=== PATIENT | female | born 1980 | race Caucasian/White ===

== ENCOUNTER 2017-10-29 10:02 | Inpatient (IN) | payer MEDICAID, OTHER ==
[~2017-10-29] VITALS: Ht 167.6 cm; Wt 46.0 kg
[~2017-10-29 10:02] MED LIST: ALPR-475; ESCI10TA10; LAMO25TA13 PO; LEVO40CA PO; LISI-167
[2017-10-29] MEDS ORDERED: KETOROLAC 30 MG/1 ML IVPush ONE (10:30)
[2017-10-29] MEDS ORDERED: ONDANSETRON 2MG/ML, 2ML IVPush ONE (10:30)
[2017-10-29] MEDS ORDERED: SODIUM CHLORIDE 0.9% 1,000ML IV ONE (10:30)
[2017-10-29] MEDS ORDERED: HYDROmorphone 1 MG/ML, 1ML IV ONE ×2 (10:30→12:00)
[2017-10-29] MEDS ORDERED: SODIUM CHLORIDE FLUSH 10ML SYR IVF ONE (10:30)
[2017-10-29] MEDS ORDERED: KETOROLAC 30 MG/1 ML ONE (10:44)
[2017-10-29] MEDS ORDERED: HYDROmorphone 2 MG/ML, 1ML ONE ×2 (10:44→12:12)
[2017-10-29] MEDS ORDERED: ONDANSETRON 2MG/ML, 2ML ONE (10:44)
[2017-10-29 10:46] LABS: BASOPHILS # (AUTO) 0.03 x10^3/uL (0-0.1); BASOPHILS % (AUTO) 0 % (0-1); EOSINOPHILS # (AUTO) 0.01 x10^3/uL (0-0.4); EOSINOPHILS % (AUTO) 0 % (1-7); LYMPHOCYTES # (AUTO) 1.37 x10^3/uL (1-3.4); LYMPHOCYTES % (AUTO) 15 % (22-44); MD NO; MEAN CORPUSCULAR HGB CONC 32.4 g/dL (32.4-35.8); MEAN CORPUSCULAR VOLUME 74.2 fL (80-100); MEAN PLATELET VOLUME 7.1 fL (7.4-10.4); MONOCYTES # (AUTO) 0.63 x10^3/uL (0.2-0.8); MONOCYTES % (AUTO) 7 % (2-9); NEUTROPHILS # (AUTO) 7.33 x10^3/uL (1.8-6.8); NEUTROPHILS % (AUTO) 78 % (42-75); PLATELET COUNT 237 x10^3/uL (130-400); RED BLOOD COUNT 4.02 x10^6/uL (3.82-5.3); RED CELL DISTRIBUTION WIDTH 18.7 % (9.6-15.2)
[2017-10-29 11:00] LABS: ALBUMIN 3.2 g/dL (3.4-5.0); ANION GAP 11 mmol/L (5-15); CALCIUM 8.2 mg/dL (8.5-10.1); CHLORIDE 96 mmol/L (98-107)
[2017-10-29 11:08] LABS: ALANINE AMINOTRANSFERASE 34 U/L (12-78); ALKALINE PHOSPHATASE 288 U/L (45-117); BILIRUBIN,TOTAL 0.8 mg/dL (0.2-1.0); CREATININE 0.63 mg/dL (0.55-1.02); TOTAL PROTEIN 7.5 g/dL (6.4-8.2)
[2017-10-29 11:31] LABS: MICROSCOPIC INDICATED
[2017-10-29 11:59] LABS: CULTURE INDICATED? YES
[2017-10-29] MEDS ORDERED: OMNIPAQUE 350 MG/ML, 100ML BOTTLE ONE (12:36)
[2017-10-29] MEDS ORDERED: METRONIDAZOLE PMX 500MG/100ML 100 ML IV ONE (13:30)
[2017-10-29] MEDS ORDERED: AMPICILLIN/SULBACTAM 3 GM in SODIUM CHLORIDE 0.9% 100 ML IV ONE (13:30)
[2017-10-29] MEDS ORDERED: ACETAMINOPHEN 325 MG TABLET PO PRN (17:00)
[2017-10-29] MEDS: morphine SULFATE 10 MG/ML, 1ML IVPush PRN ×2 (17:19→21:31)
[2017-10-29] MEDS: ONDANSETRON 2MG/ML, 2ML IVPush PRN ×2 (17:28→23:33)
[2017-10-29] MEDS: METRONIDAZOLE PMX 500MG/100ML 100 ML IV SCH (18:13)
[2017-10-29 18:17] VITALS: BP 100/68
[2017-10-29 19:29] VITALS: BP 105/72
[2017-10-29] MEDS: OXYcodone IR 5MG TABLET PO PRN (20:33)
[2017-10-29] MEDS: CIPROFLOXACIN/PMX 400MG/200ML 200 ML IV SCH (20:33)
[2017-10-29] MEDS: NS + 20MEQ KCL 1,000 ML IV SCH (23:33)
[2017-10-30] MEDS: OXYcodone IR 5MG TABLET PO PRN ×6 (00:37→20:47)
[2017-10-30 01:24] VITALS: BP 98/66
[2017-10-30] MEDS: METRONIDAZOLE PMX 500MG/100ML 100 ML IV SCH ×2 (01:46→10:08)
[2017-10-30] MEDS: morphine SULFATE 10 MG/ML, 1ML IVPush PRN ×6 (01:46→23:21)
[2017-10-30 05:13] LABS: ALBUMIN 2.6 g/dL (3.4-5.0); ANION GAP 10 mmol/L (5-15); CALCIUM 7.4 mg/dL (8.5-10.1); CHLORIDE 103 mmol/L (98-107)
[2017-10-30 05:14] LABS: BASOPHILS # (AUTO) 0.03 x10^3/uL (0-0.1); BASOPHILS % (AUTO) 0 % (0-1); EOSINOPHILS % (AUTO) 1 % (1-7); LYMPHOCYTES # (AUTO) 2.04 x10^3/uL (1-3.4); LYMPHOCYTES % (AUTO) 23 % (22-44); MD NO; MEAN CORPUSCULAR HEMOGLOBIN 23.8 pg (27.0-34.8); MEAN CORPUSCULAR HGB CONC 31.5 g/dL (32.4-35.8); MEAN CORPUSCULAR VOLUME 75.7 fL (80-100); MEAN PLATELET VOLUME 7.3 fL (7.4-10.4); MONOCYTES % (AUTO) 6 % (2-9); NEUTROPHILS # (AUTO) 6.26 x10^3/uL (1.8-6.8); NEUTROPHILS % (AUTO) 70 % (42-75); PLATELET COUNT 200 x10^3/uL (130-400); RED BLOOD COUNT 3.48 x10^6/uL (3.82-5.3); RED CELL DISTRIBUTION WIDTH 19.2 % (9.6-15.2)
[2017-10-30 05:17] LABS: ALANINE AMINOTRANSFERASE 19 U/L (12-78); ALKALINE PHOSPHATASE 224 U/L (45-117); BILIRUBIN,TOTAL 0.6 mg/dL (0.2-1.0); CHOL/HDL RATIO 2.7; CHOLESTEROL, TOTAL 69 mg/dL (140-239); HDL CHOL % 38 % (28-40); HDL CHOLESTEROL (DIRECT) 26 mg/dL (40-60); LDL CHOLESTEROL,CALCULATED 19 mg/dL (54-169); LDL/HDL RATIO 0.7 (0.5-3.0); TOTAL PROTEIN 6.3 g/dL (6.4-8.2); TRIGLYCERIDES 122 mg/dL (50-200); VLDL CHOLESTEROL 24 mg/dL (0-25)
[2017-10-30] MEDS: ONDANSETRON 2MG/ML, 2ML IVPush PRN ×3 (05:57→18:25)
[2017-10-30] MEDS: CIPROFLOXACIN/PMX 400MG/200ML 200 ML IV SCH (08:00)
[2017-10-30] MEDS: NS + 20MEQ KCL 1,000 ML IV SCH ×3 (08:00→21:49)
[2017-10-30 08:31] VITALS: BP 110/76
[2017-10-30 14:30] VITALS: BP 114/81
[2017-10-30 18:50] VITALS: BP 116/79
[2017-10-30] MEDS: TRAZODONE 100MG TABLET PO PRN (20:47)
[2017-10-31] MEDS: ONDANSETRON 2MG/ML, 2ML IVPush PRN ×3 (01:07→14:52)
[2017-10-31] MEDS: OXYcodone IR 5MG TABLET PO PRN ×4 (01:07→20:33)
[2017-10-31 03:11] VITALS: BP 110/76
[2017-10-31] MEDS: morphine SULFATE 10 MG/ML, 1ML IVPush PRN ×5 (03:44→22:18)
[2017-10-31 05:41] LABS: ANION GAP 16 mmol/L (5-15); CALCIUM 7.8 mg/dL (8.5-10.1); CHLORIDE 104 mmol/L (98-107)
[2017-10-31 05:42] LABS: CREATININE 0.52 mg/dL (0.55-1.02)
[2017-10-31 08:00] VITALS: BP 100/64
[2017-10-31] MEDS ORDERED: MAGNESIUM SULFATE PMX 4GM/100M 100 ML IV ONE (08:30)
[2017-10-31] MEDS ORDERED: NS + 20MEQ KCL 1,000 ML IV SCH (13:00)
[2017-10-31] MEDS ORDERED: PROMETHAZINE 25 MG/ML, 1ML IM PRN (13:00)
[2017-10-31 13:22] VITALS: BP 96/66
[2017-10-31 17:11] VITALS: BP 100/67
[2017-10-31 18:11] VITALS: BP 116/79
[2017-10-31] MEDS: TRAZODONE 100MG TABLET PO PRN (20:33)
[2017-11-01 00:18] VITALS: BP 109/77
[2017-11-01 00:35] VITALS: BP_SYST 109; BP_SYST 76; BP_DIAS 76
[2017-11-01] MEDS: morphine SULFATE 10 MG/ML, 1ML IVPush PRN (04:23)
[2017-11-01 08:42] VITALS: BP 114/82
[2017-11-01] MEDS: ONDANSETRON 2MG/ML, 2ML IVPush PRN ×2 (08:51→16:55)
[2017-11-01] MEDS: OXYcodone IR 5MG TABLET PO PRN ×4 (08:51→23:27)
[2017-11-01 09:57] VITALS: BP 106/74
[2017-11-01] MEDS: KETOROLAC 30 MG/1 ML IM PRN ×2 (14:18→20:42)
[2017-11-01 14:26] VITALS: BP 103/74
[2017-11-01 18:18] VITALS: BP 106/73
[2017-11-02] MEDS: TRAZODONE 100MG TABLET PO PRN (00:07)
[2017-11-02 04:42] VITALS: BP 108/76
[2017-11-02] MEDS: OXYcodone IR 5MG TABLET PO PRN ×4 (04:45→20:11)
[2017-11-02 05:09] LABS: ANION GAP 5 mmol/L (5-15); CHLORIDE 102 mmol/L (98-107); CREATININE 1.11 mg/dL (0.55-1.02)
[2017-11-02 07:28] VITALS: BP 94/62
[2017-11-02] MEDS: MULTIVITAMIN 1 TABLET PO SCH (08:59)
[2017-11-02] MEDS: ONDANSETRON 2MG/ML, 2ML IVPush PRN (08:59)
[2017-11-02] MEDS: FOLIC ACID 1 MG TABLET PO SCH (08:59)
[2017-11-02] MEDS ORDERED: MAGNESIUM SULFATE PMX 2GM/50ML 50 ML IV ONE (09:00)
[2017-11-02] MEDS: THIAMINE 100MG TABLET PO SCH (09:49)
[2017-11-02] MEDS ORDERED: POLYETHYLENE GLYCOL 17 GM PACKET NG ONE (12:00)
[2017-11-02] MEDS: MORPHINE SULFATE 4 MG/ML, 1ML IVPush PRN ×2 (17:55→22:31)
[2017-11-02 18:48] VITALS: BP 95/61
[2017-11-03] MEDS: OXYcodone IR 5MG TABLET PO PRN ×3 (00:25→18:16)
[2017-11-03 02:41] VITALS: BP 102/69
[2017-11-03] MEDS: MORPHINE SULFATE 4 MG/ML, 1ML IVPush PRN ×6 (03:18→23:38)
[2017-11-03 05:15] LABS: BASOPHILS # (AUTO) 0.02 x10^3/uL (0-0.1); BASOPHILS % (AUTO) 0 % (0-1); EOSINOPHILS # (AUTO) 0.21 x10^3/uL (0-0.4); EOSINOPHILS % (AUTO) 5 % (1-7); LYMPHOCYTES # (AUTO) 1.67 x10^3/uL (1-3.4); LYMPHOCYTES % (AUTO) 42 % (22-44); MD NO; MEAN CORPUSCULAR HEMOGLOBIN 24.9 pg (27.0-34.8); MEAN CORPUSCULAR HGB CONC 32.4 g/dL (32.4-35.8); MEAN CORPUSCULAR VOLUME 76.9 fL (80-100); MEAN PLATELET VOLUME 6.7 fL (7.4-10.4); MONOCYTES # (AUTO) 0.51 x10^3/uL (0.2-0.8); MONOCYTES % (AUTO) 13 % (2-9); NEUTROPHILS % (AUTO) 40 % (42-75); PLATELET COUNT 264 x10^3/uL (130-400); RED BLOOD COUNT 3.13 x10^6/uL (3.82-5.3); RED CELL DISTRIBUTION WIDTH 20.2 % (9.6-15.2)
[2017-11-03 05:23] LABS: CHLORIDE 103 mmol/L (98-107)
[2017-11-03 05:29] LABS: ALANINE AMINOTRANSFERASE 13 U/L (12-78); ALBUMIN 2.1 g/dL (3.4-5.0); ALKALINE PHOSPHATASE 176 U/L (45-117); ANION GAP 5 mmol/L (5-15); BILIRUBIN,TOTAL 0.4 mg/dL (0.2-1.0); CREATININE 0.86 mg/dL (0.55-1.02); TOTAL PROTEIN 6.1 g/dL (6.4-8.2)
[2017-11-03 07:45] VITALS: BP 114/80
[2017-11-03] MEDS: THIAMINE 100MG TABLET PO SCH (08:26)
[2017-11-03] MEDS: FOLIC ACID 1 MG TABLET PO SCH (08:26)
[2017-11-03] MEDS: MULTIVITAMIN 1 TABLET PO SCH (08:26)
[2017-11-03 12:20] VITALS: BP 105/73
[2017-11-03] MEDS ORDERED: POLYETHYLENE GLYCOL 17 GM PACKET PO ONE (17:30)
[2017-11-03] MEDS ORDERED: MAGNESIUM CITRATE 300ML ORAL SOL PO PRN (17:30)
[2017-11-03] MEDS ORDERED: SENNA/DOCUSATE TABLET PO PRN (17:30)
[2017-11-03] MEDS ORDERED: GLYCERIN ADULT SUPP PR PRN (17:30)
[2017-11-03 19:28] VITALS: BP 99/70
[2017-11-03 21:33] LABS: OCCULT BLOOD NEGATIVE (NEGATIVE)
[2017-11-04 00:58] VITALS: BP 123/81
[2017-11-04] MEDS: OXYcodone IR 5MG TABLET PO PRN ×4 (01:10→18:59)
[2017-11-04] MEDS: MORPHINE SULFATE 4 MG/ML, 1ML IVPush PRN ×6 (04:23→23:43)
[2017-11-04 05:18] LABS: ABSOLUTE RETICS # 0.105 x10^6/uL (0.5-2.5); MEAN CORPUSCULAR HEMOGLOBIN 24.7 pg (27.0-34.8); MEAN CORPUSCULAR HGB CONC 32.4 g/dL (32.4-35.8); MEAN CORPUSCULAR VOLUME 76.2 fL (80-100); MEAN PLATELET VOLUME 6.6 fL (7.4-10.4); PLATELET COUNT 302 x10^3/uL (130-400); RED BLOOD COUNT 3.32 x10^6/uL (3.82-5.3); RED BLOOD COUNT 3.36 x10^6/uL (3.82-5.3); RED CELL DISTRIBUTION WIDTH 20.7 % (9.6-15.2); RETICULOCYTE COUNT % 3.13 % (0.5-1.5)
[2017-11-04 05:33] LABS: CHLORIDE 102 mmol/L (98-107)
[2017-11-04 05:50] LABS: % IRON SATURATION 6 % (20-55); ALBUMIN 2.3 g/dL (3.4-5.0); ANION GAP 7 mmol/L (5-15); IRON LEVEL 17 mcg/dL (50-170); TOTAL IRON BINDING CAPACITY 282 mcg/dL (250-450)
[2017-11-04 06:16] LABS: BASOPHILS % (AUTO) 0 % (0-1); EOSINOPHILS # (AUTO) 0.18 x10^3/uL (0-0.4); EOSINOPHILS % (AUTO) 5 % (1-7); LYMPHOCYTES # (AUTO) 1.47 x10^3/uL (1-3.4); LYMPHOCYTES % (AUTO) 42 % (22-44); MD SCAN; MONOCYTES # (AUTO) 0.39 x10^3/uL (0.2-0.8); MONOCYTES % (AUTO) 11 % (2-9); NEUTROPHILS # (AUTO) 1.43 x10^3/uL (1.8-6.8); NEUTROPHILS % (AUTO) 41 % (42-75)
[2017-11-04 07:33] VITALS: BP 118/83
[2017-11-04] MEDS: FOLIC ACID 1 MG TABLET PO SCH (07:48)
[2017-11-04] MEDS: MULTIVITAMIN 1 TABLET PO SCH (07:48)
[2017-11-04] MEDS: THIAMINE 100MG TABLET PO SCH (07:48)
[2017-11-04] MEDS ORDERED: EPINEPHRINE 1 MG/ML, 1ML ONE (08:55)
[2017-11-04] MEDS ORDERED: IRON DEXTRAN IV PER PHARMACY IV PRN (09:00)
[2017-11-04] MEDS ORDERED: IRON DEXTRAN COMPLEX 25 MG in SODIUM CHLORIDE 0.9% 50 ML IV ONE (09:00)
[2017-11-04] MEDS: POTASSIUM CHLORIDE 20 MEQ TAB.ER.PRT PO SCH ×2 (09:17→16:26)
[2017-11-04] MEDS ORDERED: IRON DEXTRAN COMPLEX 1,700 MG in SODIUM CHLORIDE 0.9% 250 ML IV ONE (10:00)
[2017-11-04] MEDS ORDERED: OMNIPAQUE 350 MG/ML, 100ML BOTTLE ONE (11:44)
[2017-11-04] MEDS ORDERED: morphine SULFATE 10 MG/ML, 1ML ONE (13:11)
[2017-11-04 14:09] VITALS: BP 124/86
[2017-11-04] MEDS: FLUOXETINE 20 MG CAPSULE PO SCH (16:25)
[2017-11-04 19:33] VITALS: BP 126/87
[2017-11-05 01:15] VITALS: BP 132/99
[2017-11-05] MEDS: MORPHINE SULFATE 4 MG/ML, 1ML IVPush PRN ×2 (03:19→07:47)
[2017-11-05 05:23] LABS: BASOPHILS # (AUTO) 0.02 x10^3/uL (0-0.1); BASOPHILS % (AUTO) 1 % (0-1); EOSINOPHILS # (AUTO) 0.32 x10^3/uL (0-0.4); EOSINOPHILS % (AUTO) 7 % (1-7); LYMPHOCYTES # (AUTO) 1.83 x10^3/uL (1-3.4); LYMPHOCYTES % (AUTO) 40 % (22-44); MD NO; MEAN CORPUSCULAR HEMOGLOBIN 24.9 pg (27.0-34.8); MEAN CORPUSCULAR HGB CONC 32.8 g/dL (32.4-35.8); MEAN PLATELET VOLUME 6.6 fL (7.4-10.4); MONOCYTES # (AUTO) 0.49 x10^3/uL (0.2-0.8); MONOCYTES % (AUTO) 11 % (2-9); NEUTROPHILS # (AUTO) 1.98 x10^3/uL (1.8-6.8); NEUTROPHILS % (AUTO) 43 % (42-75); PLATELET COUNT 359 x10^3/uL (130-400); RED BLOOD COUNT 3.54 x10^6/uL (3.82-5.3); RED CELL DISTRIBUTION WIDTH 21.1 % (9.6-15.2)
[2017-11-05 05:34] LABS: ALBUMIN 2.4 g/dL (3.4-5.0); ANION GAP 5 mmol/L (5-15); CALCIUM 8.2 mg/dL (8.5-10.1); CHLORIDE 99 mmol/L (98-107)
[2017-11-05 05:37] LABS: ALKALINE PHOSPHATASE 212 U/L (45-117); BILIRUBIN,TOTAL 0.3 mg/dL (0.2-1.0); CREATININE 0.47 mg/dL (0.55-1.02); TOTAL PROTEIN 6.7 g/dL (6.4-8.2)
[2017-11-05 05:41] LABS: ALANINE AMINOTRANSFERASE 12 U/L (12-78)
[2017-11-05 06:22] VITALS: BP 124/85
[2017-11-05] MEDS: THIAMINE 100MG TABLET PO SCH (07:47)
[2017-11-05] MEDS: MULTIVITAMIN 1 TABLET PO SCH (07:47)
[2017-11-05] MEDS: POTASSIUM CHLORIDE 20 MEQ TAB.ER.PRT PO SCH ×2 (07:47→15:19)
[2017-11-05] MEDS: FLUOXETINE 20 MG CAPSULE PO SCH (07:48)
[2017-11-05] MEDS: FOLIC ACID 1 MG TABLET PO SCH (07:48)
[2017-11-05] MEDS ORDERED: LIDOCAINE 1%, 20ML ONE (09:10)
[2017-11-05] MEDS: HYDROcodone/APAP 5/325 TABLET PO PRN ×2 (09:48→13:55)
[2017-11-05 13:35] VITALS: BP 111/77
[2017-11-05] MEDS: ONDANSETRON 2MG/ML, 2ML IVPush PRN (13:55)
[2017-11-05] MEDS ORDERED: MAGNESIUM SULFATE PMX 4GM/100M 100 ML IV ONE (15:00)
[2017-11-05] MEDS ORDERED: MORPHINE SULFATE 4 MG/ML, 1ML IVPush PRN (16:30)
[2017-11-05 19:29] VITALS: BP 110/73
[2017-11-05] MEDS: HYDROcodone/APAP 10/325 MG TABLET PO PRN (19:33)
[2017-11-05] MEDS: TRAZODONE 100MG TABLET PO PRN (19:33)
[2017-11-05] MEDS ORDERED: HYDROcodone/APAP 10/325 MG TABLET PO ONE (20:30)
[2017-11-06 02:08] VITALS: BP 92/58
[2017-11-06] MEDS: HYDROcodone/APAP 10/325 MG TABLET PO PRN ×5 (03:03→18:21)
[2017-11-06 05:58] LABS: BASOPHILS # (AUTO) 0.03 x10^3/uL (0-0.1); BASOPHILS % (AUTO) 1 % (0-1); EOSINOPHILS # (AUTO) 0.35 x10^3/uL (0-0.4); EOSINOPHILS % (AUTO) 7 % (1-7); LYMPHOCYTES # (AUTO) 2.11 x10^3/uL (1-3.4); LYMPHOCYTES % (AUTO) 41 % (22-44); MD NO; MEAN CORPUSCULAR HEMOGLOBIN 24.9 pg (27.0-34.8); MEAN CORPUSCULAR HGB CONC 32.2 g/dL (32.4-35.8); MEAN CORPUSCULAR VOLUME 77.3 fL (80-100); MEAN PLATELET VOLUME 7.2 fL (7.4-10.4); MONOCYTES % (AUTO) 12 % (2-9); NEUTROPHILS # (AUTO) 2.07 x10^3/uL (1.8-6.8); NEUTROPHILS % (AUTO) 40 % (42-75); PLATELET COUNT 464 x10^3/uL (130-400); RED BLOOD COUNT 3.47 x10^6/uL (3.82-5.3); RED CELL DISTRIBUTION WIDTH 21.5 % (9.6-15.2)
[2017-11-06 06:01] LABS: ALBUMIN 2.3 g/dL (3.4-5.0); ANION GAP 6 mmol/L (5-15); CALCIUM 8.4 mg/dL (8.5-10.1); CHLORIDE 98 mmol/L (98-107)
[2017-11-06 06:05] LABS: ALKALINE PHOSPHATASE 200 U/L (45-117); BILIRUBIN,TOTAL 0.3 mg/dL (0.2-1.0); CREATININE 0.55 mg/dL (0.55-1.02); TOTAL PROTEIN 6.5 g/dL (6.4-8.2)
[2017-11-06 06:06] LABS: ALANINE AMINOTRANSFERASE 13 U/L (12-78)
[2017-11-06 07:46] VITALS: BP 96/62
[2017-11-06] MEDS: FOLIC ACID 1 MG TABLET PO SCH (08:54)
[2017-11-06] MEDS: MULTIVITAMIN 1 TABLET PO SCH (08:54)
[2017-11-06] MEDS: THIAMINE 100MG TABLET PO SCH (08:54)
[2017-11-06] MEDS: POTASSIUM CHLORIDE 20 MEQ TAB.ER.PRT PO SCH ×2 (08:54→17:03)
[2017-11-06] MEDS: FLUOXETINE 20 MG CAPSULE PO SCH (08:54)
[2017-11-06] MEDS ORDERED: HYDROcodone/APAP 10/325 MG TABLET ONE ×2 (10:32→18:10)
[2017-11-06 13:01] VITALS: BP 92/54
[2017-11-06 13:39] LABS: OCCULT BLOOD NEGATIVE (NEGATIVE)
[2017-11-06 19:55] VITALS: BP 106/71
[2017-11-06] MEDS: TRAZODONE 100MG TABLET PO PRN (21:06)
[2017-11-07] MEDS: HYDROcodone/APAP 10/325 MG TABLET PO PRN ×2 (02:09→08:41)
[2017-11-07 02:12] VITALS: BP 94/60
[2017-11-07 07:59] VITALS: BP 107/69
[2017-11-07] MEDS: MULTIVITAMIN 1 TABLET PO SCH (08:41)
[2017-11-07] MEDS: FOLIC ACID 1 MG TABLET PO SCH (08:41)
[2017-11-07] MEDS: THIAMINE 100MG TABLET PO SCH (08:41)
[2017-11-07] MEDS: POTASSIUM CHLORIDE 20 MEQ TAB.ER.PRT PO SCH ×2 (08:42→15:37)
[2017-11-07] MEDS: FLUOXETINE 20 MG CAPSULE PO SCH (08:42)
[2017-11-07 12:45] VITALS: BP 96/64
[2017-11-07] MEDS: HYDROcodone/APAP 5/325 TABLET PO PRN ×2 (15:37→21:33)
[2017-11-07 18:54] VITALS: BP 102/67
[2017-11-07] MEDS: TRAZODONE 100MG TABLET PO PRN (22:35)
[2017-11-08 01:39] VITALS: BP 121/80
[2017-11-08] MEDS: HYDROcodone/APAP 5/325 TABLET PO PRN ×2 (06:33→12:30)
[2017-11-08 07:16] VITALS: BP 93/61
[2017-11-08] MEDS: POTASSIUM CHLORIDE 20 MEQ TAB.ER.PRT PO SCH (07:49)
[2017-11-08] MEDS: THIAMINE 100MG TABLET PO SCH (08:46)
[2017-11-08] MEDS: FOLIC ACID 1 MG TABLET PO SCH (08:46)
[2017-11-08] MEDS: FLUOXETINE 20 MG CAPSULE PO SCH (08:46)
[2017-11-08] MEDS: MULTIVITAMIN 1 TABLET PO SCH (08:46)
[2017-11-08] MEDS ORDERED: MULT1TAB60 PO (08:55)
[2017-11-08] MEDS ORDERED: FERR325T18 PO (08:55)
[2017-11-08] MEDS ORDERED: TRAZ100T15 PO (08:55)
[2017-11-08] MEDS ORDERED: FOLI-17 PO (08:55)
[2017-11-08] MEDS ORDERED: FLUO20CA8 PO (08:55)
[2017-11-08] MEDS ORDERED: THIA100T6 PO (08:55)
== END 2017-11-08 12:50 | disposition home or self-care (01) | DRG 871 ==
LOC: ED 13:26 → EDIP 13:27 → ED 13:36 → SUATTDRO 13:47 → 3NE 15:54
PROVIDERS: ADMIT Hospitalist; ATTEND Hospitalist
PROC: 0T9B70Z Drainage of Bladder with Drainage Device, Via Natural or Artificial Opening (ICD-10-PCS; 2017-10-29)
PROC: 0W9B3ZZ Drainage of Left Pleural Cavity, Percutaneous Approach (ICD-10-PCS; principal; 2017-11-05)
DX: A41.9 Sepsis, unspecified organism (principal); K85.20 Alcohol induced acute pancreatitis without necrosis or infection; J90 Pleural effusion, not elsewhere classified; K86.1 Other chronic pancreatitis; F11.20 Opioid dependence, uncomplicated; R18.8 Other ascites; R56.9 Unspecified convulsions; F84.0 Autistic disorder; K86.3 Pseudocyst of pancreas; D50.9 Iron deficiency anemia, unspecified; F10.20 Alcohol dependence, uncomplicated; F41.9 Anxiety disorder, unspecified; F32.9 Major depressive disorder, single episode, unspecified; Y90.9 Presence of alcohol in blood, level not specified; Z87.442 Personal history of urinary calculi; Z90.49 Acquired absence of other specified parts of digestive tract; Z56.0 Unemployment, unspecified
CPT/HCPCS: 32555; 36415; 74022; 74177; 80048; 80053; 80061; 81001; 82040; 82272; 82728; 82945; 83540; 83550; 83605; 83615; 83690; 83735; 83986; 84157; 84311; 84478; 84703; 85025; 85045; 87040; 87070; 87086; 87205; 89051; 96361; 96374; 96375; 96376; J0744; J1170; J1750; J1885; J2405; J2550; J3480; J3490; Q9967; J2270; J3475; J7030; J7050